=== PATIENT | male | born 1975 | race Caucasian/White ===

== ENCOUNTER 2018-06-05 22:00 | Emergency (ER) | payer OTHER ==
[~2018-06-05] VITALS: Ht 190.5 cm; Wt 108.9 kg
== END 2018-06-05 23:58 | disposition home or self-care (01) ==
LOC: ER 22:00
DX: T15.02XA Foreign body in cornea, left eye, initial encounter (principal); H16.202 Unspecified keratoconjunctivitis, left eye; B96.89 Other specified bacterial agents as the cause of diseases classified elsewhere; Z88.0 Allergy status to penicillin; Z88.6 Allergy status to analgesic agent
CPT/HCPCS: 65220; 99282

== ENCOUNTER 2018-07-01 09:55 | Inpatient (IN) | payer OTHER ==
[~2018-07-01] VITALS: Ht 190.5 cm; Wt 110.7 kg
[2018-07-01 10:02] LABS: PCO2 Arterial 53.7 mmHg (35-45); PO2 Arterial 59.5 mmHg (80-100)
[2018-07-01 10:03] LABS: pH Blood Arterial 7.29 (7.35-7.45)
[2018-07-01 10:47] LABS: PCO2 Arterial 48 mmHg (35-45); PO2 Arterial 459 mmHg (80-100); pH Blood Arterial 7.35 (7.35-7.45)
[2018-07-01 12:00] LABS: Calcium, Ionized (POC) 1.15 mmol/L (1.10-1.46); Chloride (POC) 101 mmol/L (98-108); Creatinine (POC) 1.3 mg/dL (0.8-1.3); Glucose (ISTAT POC) 147 mg/dL (70-99); Hemoglobin (POC) 15.6 g/dL (13.5-17.5); Potassium (POC) 4.1 mmol/L (3.5-5.5); Sodium (POC) 141 mmol/L (135-148); Total CO2 (POC) 27 mmol/L (21-32)
[2018-07-01 12:09] LABS: BASOPHILS ABSOLUTE AUTO 0.06 K/mm3 (0.00-0.23); BASOPHILS PERCENT AUTO 0 % (0-2); EOSINOPHILS ABSOLUTE AUTO 0.02 K/mm3 (0.00-0.68); EOSINOPHILS PERCENT AUTO 0 % (0-6); Hematocrit 45.3 % (37.0-53.0); Hemoglobin 15.7 g/dL (13.5-17.5); IMMATURE GRAN ABSOLUTE AUTO 0.16 K/mm3 (0.00-0.10); IMMATURE GRAN PERCENT AUTO 1 % (0-1); LYMPHOCYTES ABSOLUTE AUTO 0.76 K/mm3 (0.84-5.20); LYMPHOCYTES PERCENT AUTO 3 % (21-46); MONOCYTES ABSOLUTE AUTO 0.34 K/mm3 (0.16-1.47); MONOCYTES PERCENT AUTO 1 % (4-13); Mean Corpuscular HGB 31.6 pg (26.0-34.0); Mean Corpuscular HGB Conc 34.7 g/dL (31.5-36.5); Mean Platelet Volume 8.7 fL (9.1-12.4); NEUTROPHILS PERCENT AUTO 95 % (41-73); Platelet Count 282 K/mm3 (150-400); RDW Coefficient Variation 11.6 % (11.7-14.2); RDW Standard Deviation 38.5 fL (35.1-46.3); Red Blood Cell Count 4.97 M/mm3 (4.30-5.90); White Blood Cell Count 27.54 K/mm3 (4.00-11.30)
[2018-07-01 12:28] LABS: Mean Corpuscular Volume 91 fL (80-100)
[2018-07-01 12:37] LABS: Magnesium, Blood 1.8 mg/dL (1.6-2.4)
[2018-07-01 12:39] LABS: Alanine Aminotransfer (ALT/SGP 177 U/L (12-78); Albumin, Blood 3.8 g/dL (3.4-5.0); Albumin/Globulin Ratio 1.1 (0.8-1.8); Alk Phos 56 U/L (50-136); Anion Gap 5 mmol/L (6-16); Aspartate Aminotrans (AST/SGOT 113 U/L (12-37); Bilirubin, Total 0.4 mg/dL (0.1-1.0); Blood Urea Nitrogen 18 mg/dL (8-24); Bun/Creatinine Ratio 14.1 (12.0-20.0); CO2, Blood 31 mmol/L (21-32); Calcium, Blood 8.5 mg/dL (8.5-10.1); Chloride, Blood 105 mmol/L (98-108); Creatinine, Blood 1.28 mg/dL (0.60-1.20); Globulin, Blood 3.5 g/dL (2.2-4.0); Glomerular Filtration Rate >60 (60-); Glucose, Blood 143 mg/dL (70-99); Potassium, Blood 4.1 mmol/L (3.5-5.5); Sodium, Blood 141 mmol/L (136-145); Thyroid Stimulating Hormone 2.87 uIU/mL (0.360-4.800); Total Protein, Blood 7.3 g/dL (6.4-8.2); Troponin I 0.808 ng/mL (0.000-0.040)
[2018-07-01 13:01] LABS: Hematocrit 45.8 % (37.0-53.0); Hemoglobin 15.7 g/dL (13.5-17.5); Mean Corpuscular HGB 31.8 pg (26.0-34.0); Mean Corpuscular HGB Conc 34.3 g/dL (31.5-36.5); Mean Corpuscular Volume 93 fL (80-100); Mean Platelet Volume 8.4 fL (9.1-12.4); Platelet Count 296 K/mm3 (150-400); RDW Coefficient Variation 11.7 % (11.7-14.2); RDW Standard Deviation 40.4 fL (35.1-46.3); Red Blood Cell Count 4.93 M/mm3 (4.30-5.90)
[2018-07-01 13:20] LABS: Anion Gap 8 mmol/L (6-16); Blood Urea Nitrogen 18 mg/dL (8-24); Bun/Creatinine Ratio 14.4 (12.0-20.0); CO2, Blood 29 mmol/L (21-32); Calcium, Blood 8.7 mg/dL (8.5-10.1); Chloride, Blood 104 mmol/L (98-108); Creatinine, Blood 1.25 mg/dL (0.60-1.20); Glomerular Filtration Rate >60 (60-); Glucose, Blood 126 mg/dL (70-99); Potassium, Blood 3.8 mmol/L (3.5-5.5)
[2018-07-01 13:22] LABS: White Blood Cell Count 25.16 K/mm3 (4.00-11.30)
[2018-07-01 13:26] LABS: Sodium, Blood 141 mmol/L (136-145)
[2018-07-01 16:35] LABS: Anion Gap 9 mmol/L (6-16); Blood Urea Nitrogen 19 mg/dL (8-24); Bun/Creatinine Ratio 15.7 (12.0-20.0); CO2, Blood 25 mmol/L (21-32); Calcium, Blood 7.7 mg/dL (8.5-10.1); Chloride, Blood 110 mmol/L (98-108); Creatinine, Blood 1.21 mg/dL (0.60-1.20); Glomerular Filtration Rate >60 (60-); Glucose, Blood 102 mg/dL (70-99); Magnesium, Blood 1.3 mg/dL (1.6-2.4); Phosphorus, Blood 1.9 mg/dL (2.5-4.9); Potassium, Blood 3.8 mmol/L (3.5-5.5); Sodium, Blood 144 mmol/L (136-145)
[2018-07-02 02:35] LABS: BASOPHILS ABSOLUTE AUTO 0.02 K/mm3 (0.00-0.23); BASOPHILS PERCENT AUTO 0 % (0-2); EOSINOPHILS ABSOLUTE AUTO 0.01 K/mm3 (0.00-0.68); EOSINOPHILS PERCENT AUTO 0 % (0-6); Hematocrit 41.1 % (37.0-53.0); IMMATURE GRAN ABSOLUTE AUTO 0.04 K/mm3 (0.00-0.10); IMMATURE GRAN PERCENT AUTO 0 % (0-1); LYMPHOCYTES PERCENT AUTO 9 % (21-46); MONOCYTES ABSOLUTE AUTO 0.89 K/mm3 (0.16-1.47); MONOCYTES PERCENT AUTO 6 % (4-13); Mean Corpuscular HGB 31.7 pg (26.0-34.0); Mean Corpuscular HGB Conc 34.1 g/dL (31.5-36.5); Mean Corpuscular Volume 93 fL (80-100); Mean Platelet Volume 8.6 fL (9.1-12.4); NEUTROPHILS ABSOLUTE AUTO 11.94 K/mm3 (1.96-9.15); NEUTROPHILS PERCENT AUTO 85 % (41-73); Platelet Count 258 K/mm3 (150-400); RDW Coefficient Variation 11.9 % (11.7-14.2); RDW Standard Deviation 40.8 fL (35.1-46.3); Red Blood Cell Count 4.42 M/mm3 (4.30-5.90)
[2018-07-02 02:52] LABS: Alanine Aminotransfer (ALT/SGP 121 U/L (12-78); Albumin, Blood 3.4 g/dL (3.4-5.0); Alk Phos 45 U/L (50-136); Anion Gap 9 mmol/L (6-16); Aspartate Aminotrans (AST/SGOT 54 U/L (12-37); Bilirubin, Total 0.3 mg/dL (0.1-1.0); Blood Urea Nitrogen 29 mg/dL (8-24); Bun/Creatinine Ratio 21.8 (12.0-20.0); CO2, Blood 25 mmol/L (21-32); Calcium, Blood 8.5 mg/dL (8.5-10.1); Chloride, Blood 104 mmol/L (98-108); Creatinine, Blood 1.33 mg/dL (0.60-1.20); Globulin, Blood 3.3 g/dL (2.2-4.0); Glomerular Filtration Rate >60 (60-); Glucose, Blood 149 mg/dL (70-99); Potassium, Blood 4.3 mmol/L (3.5-5.5); Sodium, Blood 138 mmol/L (136-145); Total Protein, Blood 6.7 g/dL (6.4-8.2)
[2018-07-02 05:31] LABS: PCO2 Arterial 40.1 mmHg (35-45); PO2 Arterial 79.4 mmHg (80-100); pH Blood Arterial 7.45 (7.35-7.45)
[2018-07-02] MEDS ORDERED: TRAM50 PO (10:55)
[2018-07-02] MEDS ORDERED: Acetaminophen325 M1 PO (10:55)
[2018-07-02] MEDS ORDERED: Ibuprofen Ib200 MG PO (10:56)
[2018-07-02 11:07] LABS: Anion Gap 5 mmol/L (6-16); Blood Urea Nitrogen 23 mg/dL (8-24); Bun/Creatinine Ratio 18.7 (12.0-20.0); CO2, Blood 31 mmol/L (21-32); Calcium, Blood 8.7 mg/dL (8.5-10.1); Chloride, Blood 104 mmol/L (98-108); Creatinine, Blood 1.23 mg/dL (0.60-1.20); Glomerular Filtration Rate >60 (60-); Glucose, Blood 110 mg/dL (70-99); Magnesium, Blood 2.2 mg/dL (1.6-2.4); Potassium, Blood 4.7 mmol/L (3.5-5.5); Sodium, Blood 140 mmol/L (136-145)
== END 2018-07-02 12:35 | disposition home or self-care (01) | DRG 286 ==
LOC: ORSCSDS 09:55 → ER 09:55 → ICUW 11:30 → ENPENDDIS 07-02 12:12 → ICUW 07-02 12:35
PROVIDERS: Anesthesiology; Hospitalist; Internal Medicine; Internal Medicine Critical Care Medicine; Otolaryngology
PROC: 5A1935Z Respiratory Ventilation, Less than 24 Consecutive Hours (ICD-10-PCS; 2018-07-01)
PROC: B2111ZZ Fluoroscopy of Multiple Coronary Arteries using Low Osmolar Contrast (ICD-10-PCS; principal; 2018-07-01 09:00)
DX: I46.8 Cardiac arrest due to other underlying condition (principal); J96.01 Acute respiratory failure with hypoxia; J81.0 Acute pulmonary edema; I42.9 Cardiomyopathy, unspecified; J34.2 Deviated nasal septum; J34.3 Hypertrophy of nasal turbinates; R07.81 Pleurodynia; T41.3X5A Adverse effect of local anesthetics, initial encounter; Y92.234 Operating room of hospital as the place of occurrence of the external cause; T44.5X5A Adverse effect of predominantly beta-adrenoreceptor agonists, initial encounter
CPT/HCPCS: 31720; 36415; 36600; 71045; 80047; 80048; 80053; 82330; 82435; 82803; 83605; 83735; 83880; 84100; 84132; 84295; 84443; 84484; 85014; 85025; 85027; 90686; 93005; 93010; 93306; 93458; 94002; 96374; 96375; 99152; 99153; 99291-25; C1769; C1894; G0008; J1100; J1644; J1940; J2060; J2250; J2405; J3010; J3475; J7030; J7050; J7120; Q9967

== ENCOUNTER → 2025-09-11 | Outpatient (CLI) | payer SELFPAY ==
[~2025-09-11] MED LIST: Acetaminophen325 M1 PO; Ibuprofen Ib200 MG PO; TRAM50 PO
== END ==
LOC: LAB SHORT 13:24 → LAB 13:24
DX: B35.4 Tinea corporis (principal)
CPT/HCPCS: 87102